=== PATIENT | female | born 1980 | race Caucasian/White ===

== ENCOUNTER 2021-04-18 10:19 | Emergency (ER) | payer OTHER ==
[2021-04-18] MEDS ORDERED: CEPHALEXIN500 MG PO (12:10)
[2021-04-18] MEDS ORDERED: BACTRIM DS TAB1 EACH PO (12:10)
== END 2021-04-18 12:25 | disposition home or self-care (01) ==
LOC: ER1 10:19
DX: L72.3 Sebaceous cyst (principal); J45.909 Unspecified asthma, uncomplicated; I10 Essential (primary) hypertension; F17.200 Nicotine dependence, unspecified, uncomplicated; Z90.49 Acquired absence of other specified parts of digestive tract; Z79.899 Other long term (current) drug therapy
CPT/HCPCS: 10060; 99283